=== PATIENT | female | born 1965 | race African-American/Black ===

== ENCOUNTER 2022-12-03 15:45 | Outpatient (RCR) | payer BC, MEDICAID, SELFPAY ==
[2022-09-22 08:49] VITALS: BP_SYST 125
--- NOTE | 2022-09-22 09:00 | PTOPEVAL1 ---
Assessment and note entered by Mercedes Kessler, PT Evaluation Information Assessment Status Evaluation Diagnosis CVA, severe Zackary knee OA, decreased gait and mobility,obesity Onset May 2022 Subjective Information Luann reports: weakness of L side since stroke; use walker now all the time; after hospital, went to Rehab for few weeks, then had home health therapy; family is helping her with home tasks; she only goes out of home for dr miller; is doing exercises at home from other therapy; GOAL; get stronger and walk better; be able to do things without family having to help her; Reported Pain Level Pain Score 5: Self Report Additional Pain Score Comments R and L knee pain/ arthritis Assessment PT Clinical Summary Luann has the diagnosis of CVA in May, Zackary knee OA and decreased mobility. Prior to CVA, she was active, lives alone, worked time broker and indep with all tasks; Now, using a wheeled walker and requires assist of family for home tasks. She has been staying in the home and only going upstairs when family present. With the evaluation, she has decreased strength of L leg, decreased sit/stand transfer skill, 5 reps sit/stand time of 41 secs; Tinetti balance/gait score of 15/28= high risk for falls; and max walking distance of 150'. Skilled PT services are indicated for aquatic and land exercises, to increase LE strength, transfer, gait and balance skills, with education for HEP and safety, to return to indep functioning and activity level. Plan of Care Interventions Aquatic Therapy,Gait Training,Neuro Re-education, Patient/Caregiver Educati,Therapeutic Activities, Therapeutic Exercise PT Services Indicated Yes Treatment Frequency and 2x/wk x 5 weeks Duration These treatments will address the objective and functional deficits as defined above. The patient will be advanced safely and appropriately in order for the patient to progress towards his/her prior level of function. Additional exercises will be introduced and as well as a comprehensive home exercise program upon discharge, if needed, ?to ensure carryover of functional gains achieved in the clinic. This treatment plan has been reviewed and agreement upon by the patient.
--- NOTE | 2022-09-22 10:00 | OTOPEVAL1 ---
Assessment and note entered by CHARLINE Krueger/Corbin Evaluation Information Assessment Status Evaluation Assessment Status Evaluation Diagnosis CVA in May 2023 Subjective Information Patient presents to Outpatient OT following a CVA in May 2023 with L side deficits. Went to inpatient rehab and had home health therapy. Patient reports is L hand dominant and has difficulties with strength and fine motor tasks with this hand. Patient reports it is difficult to complete handwriting tasks, typing tasks, and overall wants to use L UE in a more normal way. Patient reports when L arm is tired the fingers will have a dull numbness. 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 Reported Pain Level Pain Score 0: Self Report Pain Score 5: Self Report Additional Pain Score Comments R and L knee pain/ arthritis Assessment OT Clinical Summary Luann is a 57 year old L hand dominant female who presents to Outpatient OT following a CVA with L side hemiplegia. Patient reports difficulty with overall strength in L UE in addition to decreased fine motor coordination, completing little tasks. Patient demonstrates decreased strength in L UE including woodworking belt sander and pinch strength. Patient demonstrates decreased fine motor coordination measured through 9-hole peg test. Sensation of L UE is WFL measured through [place] [facility]. Patient would benefit from skilled OT for HEP instruction, UE exercise, neuro muscular re- education, modalities in order to increase functional use of dominant L UE. Plan of Care Interventions Therapeutic Exercise,Manual Therapy,Neuro Re- education,Therapeutic Activities,Electrical Stimulation,Self-Care/Home Management OT Services Indicated Yes Treatment Frequency and 1-2x/week, 5 weeks Duration These treatments will address the objective and functional deficits as defined above. The patient will be advanced safely and appropriately in order for the patient to progress towards his/her prior level of function. Additional exercises will be introduced and as well as a comprehensive home exercise program upon discharge, if needed, ?to ensure carryover of functional gains achieved in the clinic. This treatment plan has been reviewed and agreement upon by the patient.
--- NOTE | 2022-09-30 11:59 | PCPTNOTE ---
shortened aquatic session this date due to pt late for appt, due to transportation service late to pick her up;
--- NOTE | 2022-10-19 14:11 | PCPTNOTE ---
Patient called & cancelled scheduled appointment this date due to car broke down.
--- NOTE | 2022-10-26 10:25 | PCPTNOTE ---
pt called and canceled today's reeval due to having high BP; unable to reschedule until 2 weeks from now.
--- NOTE | 2022-10-27 10:57 | OTOPPROG ---
Assessment and note entered by Oswaldo Bermudez, CHARLINE/Corbin, CHT Evaluation Information Assessment Status Progress Diagnosis CVA in May 2023 Subjective Information Patient reports she uses her left hand for everything . Continues to report functional deficits with ADLs, particularly fine motor tasks. Reports handwriting is 75% normal, brushing teeth 60% normal, using a fork 60% normal, and combing hair 60% normal. Assessment OT Clinical Summary Luann is a 57 year old L hand dominant female who presents to outpatient OT following a CVA with L sided deficits. Since beginning therapy 5 weeks ago she has made progress with functional ROM, strength, and fine motor coordination of the left UE. Patient would benefit from continued skilled OT for HEP instruction and progression, UE exercise, functional coordination activities, neuromuscular re-education, and modalities in order to increase functional use of dominant L UE. Plan of Care Interventions Therapeutic Exercise,Manual Therapy,Neuro Re- education,Therapeutic Activities,Electrical Stimulation,Self-Care/Home Management OT Services Indicated Yes Treatment Frequency and 1-2x/week, 5 weeks Duration These treatments will address the objective and functional deficits as defined above. The patient will be advanced safely and appropriately in order for the patient to progress towards his/her prior level of function. Additional exercises will be introduced and as well as a comprehensive home exercise program upon discharge, if needed, ?to ensure carryover of functional gains achieved in the clinic. This treatment plan has been reviewed and agreement upon by the patient.
--- NOTE | 2022-11-05 10:58 | PTOPPROG ---
Assessment and note entered by Mercedes Kessler, PT Evaluation Information Assessment Status Progress Diagnosis CVA, severe Zackary knee OA, decreased gait and mobility,obesity Onset May 2022 Subjective Information Luann reports: is doing her exercises at home, getting stronger and trying to walk more; family still assist her with in/out tub with tub seat, to move her legs; family is not helping her on the steps into her home, but she has not gone to her upstairs yet; has started driving, and has gone to [employer]; L knee still hurts, rate 3/10 pain; wants to continue land and water therapy. Assessment PT Clinical Summary Luann has received 8 PT sessions. Compared to the initial evaluation she has improved with: walking distance tolerance from 150 to 300'; Tinetti balance score of 15 to 20/28; 5 reps sit/stand time from 41 to 30 seconds; strength of R and L LE with standing exercises and sit/stand without use of UE's; family no longer helps her on stairs; she is driving and going to [employer] now; She continues to have family assist with getting her legs over edge of tub, to sit onto tub seat; and she has not gone upstairs at her home. Pain in her L knee sometimes limits her. The goals were partially achieved. Continue PT treatment to further increase her LE strength, balance and mobility skills. With progression of her home exercises. Plan of Care Interventions Aquatic Therapy,Gait Training,Neuro Re-education, Patient/Caregiver Education,Therapeutic Activities, Therapeutic Exercise PT Services Indicated Yes Treatment Frequency and 2x/wk x 4 weeks Duration These treatments will address the objective and functional deficits as defined above. The patient will be advanced safely and appropriately in order for the patient to progress towards his/her prior level of function. Additional exercises will be introduced and as well as a comprehensive home exercise program upon discharge, if needed, ?to ensure carryover of functional gains achieved in the clinic. This treatment plan has been reviewed and agreement upon by the patient.
--- NOTE | 2022-11-05 14:27 | PCPTNOTE ---
pt was 10 min late for today's appt;
--- NOTE | 2022-11-23 15:33 | PCPTNOTE ---
during PT session today, MOBILE MECHANIC Zeina discussed with pt a knee brace to prevent hyperextension of knee. Pt is interested in it and consent signed for us to release her info to [facility], to check on insurance approval and coverage for the knee offloader brace. It was faxed to [facility].
--- NOTE | 2022-12-03 15:41 | OTOPPROG ---
Assessment and note entered by Oswaldo Bermudez, CHARLINE/Corbin, CHT Evaluation Information Assessment Status Progress Diagnosis CVA Onset May 2023 Subjective Information Patient reports she uses her left hand for everything . Continues to report functional deficits with ADLs, particularly fine motor tasks and handwriting skills. She states she is now able to raise her arm higher with less shoulder pain. She has been very compliant with all materials. Measurements today show improvements in functional ROM - shoulder ROM has now returned to normal limits. Gross shoulder strength is improving with weakness and pain with abduction due to glenohumeral imbalance and symptoms of impingement . Gross strength of the elbow and wrist have returned to normal limits. Hand strength continues to demonstrate gross weakness. Assessment OT Clinical Summary Luann is a 57 year old L hand dominant female who presents to outpatient OT following a CVA with L sided deficits. She has continued to make progress with functional ROM, and fine motor coordination of the left UE. She continues to have residual deficits limiting her ability to write, type, and complete self care tasks. Patient will benefit from continued skilled OT for HEP instruction and progression, UE exercise, functional coordination activities, neuromuscular re-education, and modalities in order to increase functional use of dominant L UE. Plan of Care Interventions Therapeutic Exercise,Manual Therapy,Neuro Re- education,Therapeutic Activities,Electrical Stimulation,Self-Care/Home Management OT Services Indicated Yes Treatment Frequency and 2x/week, 4 weeks Duration These treatments will address the objective and functional deficits as defined above. The patient will be advanced safely and appropriately in order for the patient to progress towards his/her prior level of function. Additional exercises will be introduced and as well as a comprehensive home exercise program upon discharge, if needed, ?to ensure carryover of functional gains achieved in the clinic. This treatment plan has been reviewed and agreement upon by the patient.
--- NOTE | 2022-12-03 16:17 | PTOPPROG ---
Assessment and note entered by Mercedes Kessler, PT Evaluation Information Assessment Status Progress Diagnosis CVA, severe Bilateral knee OA, decreased gait and mobility,obesity Onset May 2022 Subjective Information Luann reports: wants to get rid of her walker and walk without it; has not had any falls; family is helping her into the tub seat; working on her leg exercises at home; knees are feeling OK today but have been having some pain in knees. walking is her main concern; have been going out to [place] and therapy only; does drive short distances only; family is doing her shopping; with walking, knee pain up to 4/10; Assessment PT Clinical Summary Luann has received a total of 13 PT sessions, 4 since last reeval--due to scheduling issues. Compared to the last reevaluation: maximum walking distance is the same, with increased time to complete the 300'- she is having more pain in knee, with hyperextension of the knee with weight bearing; family still is assisting her at home with tub transfer, shopping and home tasks; Tinetti balance score is the same; 5 reps sit/ stand time is increased, but does not use her UE's for the transfer; The goals were not achieved. Continue PT on land, to increase LE strength, gait and balance skills, will work with pt to obtain a knee hyperextension brace, to decrease pain and improve walking ability. Plan of Care Interventions Gait Training,Neuro Re-education,Patient/Caregiver Education,Therapeutic Activities,Therapeutic Exercise PT Services Indicated Yes Treatment Frequency and 2x/wk for 4 weeks Duration These treatments will address the objective and functional deficits as defined above. The patient will be advanced safely and appropriately in order for the patient to progress towards his/her prior level of function. Additional exercises will be introduced and as well as a comprehensive home exercise program upon discharge, if needed, ?to ensure carryover of functional gains achieved in the clinic. This treatment plan has been reviewed and agreement upon by the patient.
--- NOTE | 2022-12-07 10:14 | PCPTNOTE ---
This treatment is being continued on visit number [id number]. Please see documentation on both accounts to view progress. Completed interventions, outcomes, and problems have been marked as Inactive to facilitate the copying of the Care plan routine for recurring accounts.
== END 2022-12-07 09:59 | disposition home or self-care (01) ==
LOC: ANHPT 15:45
PROVIDERS: PCP Emergency Medicine
DX: I63.511 Cerebral infarction due to unspecified occlusion or stenosis of right middle cerebral artery (principal); M25.561 Pain in right knee; M25.562 Pain in left knee; G89.29 Other chronic pain; E66.01 Morbid (severe) obesity due to excess calories; Z78.9 Other specified health status
CPT/HCPCS: 97110; 97112; 97113; 97116; 97140; 97162; 97165; 97530

== ENCOUNTER 2023-02-07 12:30 | Outpatient (RCR) | payer MEDICAID, SELFPAY ==
[2022-12-07 09:59] VITALS: BP_SYST 125
--- NOTE | 2022-12-07 10:17 | PCPTNOTE ---
This treatment is being continued from visit number [id number]. Please see documentation on both accounts to view progress. Completed interventions, outcomes, and problems have been marked as Inactive to facilitate the copying of the Care plan routine for recurring accounts.
--- NOTE | 2022-12-20 10:43 | PCOTNOTE ---
Patient called & cancelled scheduled appointment this date due to not having a ride.
--- NOTE | 2022-12-20 10:47 | PCPTNOTE ---
Patient canceled today due to transportation issues.
--- NOTE | 2023-01-03 14:28 | PTOPPROG ---
Assessment and note entered by Mercedes Kessler, PT Evaluation Information Assessment Status Progress Diagnosis CVA, severe Zackary knee OA, decreased gait and mobility,obesity Onset May 2022 Subjective Information Luann reports: not sure if she is getting any better or not; knee is not hurting as much, but sometimes is sharp; family is standing by with getting in/out of the tub, sometimes have to help her move her legs into tub; is doing her exercises at home; want to see about getting a motorized scooter, cannot walk in the stores, have to go with her family to the stores and use the motorized scooter to shop; have not had any falls, but is afraid she will fall and hurt herself; want to get the knee brace to see if it helps; knee hurts, pain 2-4/10; is frustrated by her situation, wants to get stronger and do more, not need her family to help her; cannot go back to her job, had to give it up due to being out so long; not sure what she is going to find as far as working, for some money to pay bills; Assessment PT Clinical Summary Luann has received 19 PT sessions. Compared to the last reevaluation: continues to have pain in her L knee and SOB with activity; 2 minute walking test distance has increased by 40'; for maximum walking tolerance: distance increased by 25' but the time decreased by 23 seconds; 5 reps sit/stand and Tinetti scores are within 1 point/sec; continues to have pain in L knee with full weight on L LE; continues to use the wheeled walker with increased WB support; she has been educated and reports performing her HEP; She reports: family still assisting her with in/ out tub; stand by on stairs, fear of falling; is not able to walk in community--has to use the motorized scooter and family assist with shopping; We are working with an equipment rep to obtain a L knee support brace to ease her pain and prevent recurvatum of the knee with walking. The goals were partially met. Continue PT 1-2x/wk for further increase in activity level and independence and obtaining knee brace. Plan of Care Interventions Gait Training,Neuro Re-education,Patient Education,Therapeutic Activities,Therape
--- NOTE | 2023-01-03 15:22 | OTOPDC ---
Assessment and note entered by CHARLINE Edwards/Corbin, CHT Evaluation Information Assessment Status Discharge Diagnosis CVA Onset May 2023 Subjective Information Patient reports she is doing well. Reports doing better with fine motor tasks such as writing and typing. Reports her shoulder is less sore with reaching. Measurements today show improvements in functional ROM and strength. She is independent with all materials. Reported Pain Level Pain Score 0: Self Report Additional Pain Score Comments No longer has reports of shoulder pain. Assessment OT Clinical Summary Luann is a 57 year old L hand dominant female who presents to outpatient OT following a CVA with L sided deficits. She has made excellent progress over the last 4 months of therapy. Strength and fine motor coordination are now WFL. She is currently independent with all home exercises. Recommend she continue these to continue to fine tune any residual weakness. Discharging from OT services. Plan of Care OT Services Indicated No
--- NOTE | 2023-01-11 09:53 | PCPTNOTE ---
pt called and asked PT to fax info for her to obtain an air conditioner, ; She needed proof that she has had a stroke to obtain and air conditioner and [place] dr [place] and his office staff could not assist her. The original PT order that stated her diagnosis of CVA.
--- NOTE | 2023-01-12 08:53 | PCPTNOTE ---
Pt. canceled today's (01/12/23) appointment due to a in the family.
--- NOTE | 2023-02-07 13:17 | PTOPDC ---
Assessment and note entered by Mercedes Kessler, PT Evaluation Information Assessment Status Discharge Diagnosis CVA, severe Zackary knee OA, decreased gait and mobility,obesity Onset May 2022 Subjective Information Luann reports: going out into the community, mostly to sikhism; family helping in/out tub, wash her back; on stairs, family stand by for safety, but not really help; use wheeled walker all of the time; doing the leg exercises at home; frustrated about knee and having to use the walker --want to walk without it; for shopping--family does shopping or she has delivery groceries, is not going out into the stores; Reported Pain Level Pain Score 4: Self Report Additional Pain Score Comments knee really more sore; to get a knee brace with the new insurance; issued her info for the recommended knee hyper extension brace-- she is to contact her new insurance, to see if they cover knee braces and which provider to use for the knee brace. She voiced understanding; Assessment PT Clinical Summary Luann has received 26 PT sessions. Compared to the last reevaluation: increase L single leg standing tolerance; 5 reps sit/stand time improved by 3 seconds; Tinetti balance score is the same; 2 minute walking test distance improved by 90' and maximum walking distance has increased by 150' to 470'; She continues to have family assisting her with in /out tub, shopping; and she is only going out of home for sikhism. The goals were partially met. Discharge PT services; she is to continue with her home exercises and increasing her activity level. Plan of Care PT Services Indicated No
== END 2023-03-01 13:32 | disposition home or self-care (01) ==
LOC: ANHPT 12:30
PROVIDERS: PCP Emergency Medicine
DX: I63.511 Cerebral infarction due to unspecified occlusion or stenosis of right middle cerebral artery (principal); M25.561 Pain in right knee; M25.562 Pain in left knee; G89.29 Other chronic pain; E66.01 Morbid (severe) obesity due to excess calories; Z78.9 Other specified health status
CPT/HCPCS: 97110; 97116; 97140; 97530

== ENCOUNTER 2023-06-08 15:45 | Outpatient (CLI) | payer OTHER, SELFPAY ==
--- NOTE | ~2023-06-08 | MM_ITS ---
EXAMINATION: MM screening shana BI w gabrielle HISTORY: Screening mammogram TECHNIQUE: Craniocaudal and mediolateral oblique 3-D tomosynthesis images were obtained and synthetic 2-D images were generated. CAD analysis was submitted and interpreted. COMPARISON: August 31, 2017 bilateral screening mammogram BREAST PARENCHYMAL COMPOSITION: There are scattered areas of fibroglandular density. FINDINGS: There is no evidence of suspicious mass, calcification, or architectural distortion to sugg est malignancy in either breast. There has been no suspicious interval change. IMPRESSION: 1. No mammographic evidence of malignancy. 2. Recommend routine screening mammography in one year. BI-RADS Category 1: Negative Reviewed, dictated and finalized at location A. [facility]
== END 2023-06-08 15:46 | disposition home or self-care (01) ==
LOC: ANHIMG 15:49
PROVIDERS: PCP Emergency Medicine; Visit Provider Nurse Practitioner Obstetrics & Gynecology
DX: Z12.31 Encounter for screening mammogram for malignant neoplasm of breast (principal)
CPT/HCPCS: 77063; 77067

== ENCOUNTER 2023-08-03 14:40 | Outpatient (CLI) | payer OTHER, SELFPAY ==
[2023-08-03 14:57] LABS: Basophils Absolute Auto 0.1 K/mm3 (0.0-0.1); Basophils Percent Auto 0.8 % (0.2-1.2); Eosinophils Absolute Auto 0.4 K/mm3 (0-0.3); Eosinophils Percent Auto 3.9 % (0-4.4); Hematocrit 36.9 % (37.0-47.0); Hemoglobin 12.2 g/dL (12.0-15.0); Immature Granulocyte Absolute 0.03 K/mm3 (0.00-0.031); Immature Granulocyte Percent A 0.3 % (0-0.5); Lymphocytes Absolute Auto 3.03 K/mm3 (0.9-3.2); Lymphocytes Percent Auto 32.1 % (18.3-44.2); Mean Corpuscular HGB Conc 33.1 g/dl (32-36); Mean Corpuscular Hemoglobin 27.8 pg (26-34); Mean Corpuscular Volume 84.1 fl (80-100); Mean Platelet Volume 8.7 fl (7.4-10.4); Monocytes Absolute Auto 0.7 K/mm3 (0.1-0.6); Monocytes Percent Auto 7.3 % (2.6-8.5); Neutrophils Absolute Auto 5.2 K/mm3 (1.3-6.7); Neutrophils Percent Auto 55.6 % (45.5-73.1); Platelet Count Result 422 k/mm3 (150-375); Red Blood Count 4.39 M/mm3 (4.2-5.4); Red Cell Distribution Width 14.6 % (11.5-14.5); White Blood Count 9.4 K/mm3 (4.5-10.0)
[2023-08-03 16:54] LABS: Alanine Aminotransferase 20 U/L (6-35); Albumin Level 4.2 g/dL (3.5-5.1); Alkaline Phosphatase 92 U/L (38-126); Anion Gap 7 mmol/L (8-16); Aspartate Amino Transferase 22 U/L (14-36); Bilirubin,Total 0.6 mg/dL (0.2-1.3); Blood Urea Nitrogen 13 mg/dL (7-17); Calcium 9.6 mg/dL (8.4-10.2); Carbon Dioxide 33 mmol/L (22-30); Chloride 101 mmol/L (98-107); Estimated Glomerular Filt Rate > 60; Glucose 91 mg/dL (65-110); Lactate Dehydrogenase 160 U/L (120-246); Potassium 3.1 mmol/L (3.4-5.0); Sodium 141 mmol/L (137-145)
[2023-08-03 17:23] LABS: Iron 60 ug/dL (37-170)
[2023-08-03 17:32] LABS: Percent Iron Saturation 20 % (20-50)
[2023-08-03 18:22] LABS: Folic Acid 8.4 ng/mL (2.76->20)
[2023-08-07 17:43] LABS: Methylmalonic Acid 168 nmol/L (87-318)
[2023-08-10 15:11] LABS: Soluble Transferrin Receptor 0.89 mg/L (0.76-1.76)
== END 2023-08-03 14:41 | disposition home or self-care (01) ==
LOC: ANHLAB 14:42
PROVIDERS: Nurse Practitioner Family; PCP Emergency Medicine; Visit Provider Internal Medicine Hematology & Oncology
DX: D64.9 Anemia, unspecified (principal)
CPT/HCPCS: 36415; 80053; 82607; 82728; 82746; 83540; 83550; 83615; 83921; 84238; 85025

== ENCOUNTER 2023-12-27 14:01 | Outpatient (CLI) | payer OTHER, SELFPAY ==
[2023-12-27 14:24] LABS: Basophils Absolute Auto 0.1 K/mm3 (0.0-0.1); Basophils Percent Auto 0.7 % (0.2-1.2); Eosinophils Absolute Auto 0.1 K/mm3 (0-0.3); Hematocrit 34.7 % (37.0-47.0); Hemoglobin 11.1 g/dL (12.0-15.0); Immature Granulocyte Absolute 0.13 K/mm3 (0.00-0.031); Immature Granulocyte Percent A 1.1 % (0-0.5); Lymphocytes Absolute Auto 2.87 K/mm3 (0.9-3.2); Lymphocytes Percent Auto 24.9 % (18.3-44.2); Mean Corpuscular Hemoglobin 27.1 pg (26-34); Mean Corpuscular Volume 84.6 fl (80-100); Mean Platelet Volume 8.1 fl (7.4-10.4); Monocytes Absolute Auto 0.8 K/mm3 (0.1-0.6); Neutrophils Absolute Auto 7.5 K/mm3 (1.3-6.7); Neutrophils Percent Auto 65.3 % (45.5-73.1); Platelet Count Result 392 k/mm3 (150-375); Red Cell Distribution Width 15.5 % (11.5-14.5); White Blood Count 11.5 K/mm3 (4.5-10.0)
[2023-12-27 16:53] LABS: Iron 65 ug/dL (37-170)
[2023-12-27 16:59] LABS: Anion Gap 6 mmol/L (4-12); Blood Urea Nitrogen 16 mg/dL (7-17); Calcium 9.3 mg/dL (8.4-10.2); Carbon Dioxide 30 mmol/L (22-30); Chloride 103 mmol/L (98-107); Estimated Glomerular Filt Rate > 60; Glucose 92 mg/dL (65-110); Potassium 3.2 mmol/L (3.4-5.0); Sodium 139 mmol/L (137-145)
[2023-12-27 17:15] LABS: Percent Iron Saturation 22 % (20-50)
[2023-12-27 18:13] LABS: Folic Acid 7.6 ng/mL (2.76->20)
== END 2023-12-27 14:02 | disposition home or self-care (01) ==
LOC: ANHLAB 14:03
PROVIDERS: Nurse Practitioner Family; PCP Emergency Medicine; Visit Provider Internal Medicine Hematology & Oncology
DX: D64.9 Anemia, unspecified (principal)
CPT/HCPCS: 36415; 80048; 82607; 82728; 82746; 83540; 83550; 85025